=== PATIENT | male | born 1980 | race Caucasian/White ===

== ENCOUNTER 2017-05-13 16:05 | Emergency (ER) | payer MEDICAID, OTHER ==
[~2017-05-13] VITALS: Wt 78.0 kg
[~2017-05-13 16:05] MED LIST: HYDR-3498 PO; IBUP-1542 PO
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
[2017-05-13] MEDS ORDERED: IBUP-1542 PO (17:08)
[2017-05-13] MEDS ORDERED: AMO500 PO (17:08)
== END 2017-05-13 17:19 | disposition home or self-care (01) ==
LOC: FTE 16:05
DX: J02.0 Streptococcal pharyngitis (principal)
CPT/HCPCS: 87880; Z7502; 99283

== ENCOUNTER 2017-11-23 17:20 | Emergency (ER) | END 2017-11-23 23:14 | disposition home or self-care (01) ==

== ENCOUNTER 2018-10-02 14:07 | Emergency (ER) | END 2018-10-03 02:00 | disposition short-term general hospital (02) ==